=== PATIENT | male | born 1980 | race African-American/Black ===

== ENCOUNTER 2019-11-25 03:31 | Emergency (ER) | payer OTHER ==
[~2019-11-25] VITALS: Ht 170.2 cm; Wt 97.0 kg
[~2019-11-25 03:31] MED LIST: AMPICILLIN; GABAPENTIN; HYDR-4009; SERTRALINE; TEMAZEPAM; TIZA4CAP6
[2019-11-25] MEDS ORDERED: KETOROLAC 60MG/2ML VIAL IM ONE (04:30)
[2019-11-25 04:50] VITALS: BP 160/103
== END 2019-11-25 06:22 | disposition home or self-care (01) ==
LOC: ER 03:31
DX: S33.5XXA Sprain of ligaments of lumbar spine, initial encounter (principal); Z79.899 Other long term (current) drug therapy; V49.88XA Car occupant (driver) (passenger) injured in other specified transport accidents, initial encounter; Y93.89 Activity, other specified; Y92.89 Other specified places as the place of occurrence of the external cause; Y99.8 Other external cause status
CPT/HCPCS: 72100; 96372; 99283; J1885

== ENCOUNTER 2021-01-13 19:17 | Inpatient (IN) | payer MEDICAID, OTHER ==
[~2021-01-13] VITALS: Ht 167.6 cm; Wt 95.3 kg
[2021-01-13] MEDS ORDERED: MORPHINE SULFATE 4 MG/ML CPJ (NOT FOR IM USE) IV STA (19:56)
[2021-01-13] MEDS ORDERED: SODIUM CHLORIDE 0.9% 1,000 ML IV ONE (20:00)
[2021-01-13] MEDS ORDERED: DEXAMETHASONE 4MG/ML 1ML VIAL IV ONE (20:15)
[2021-01-13] MEDS ORDERED: ONDANSETRON HCL 4MG/2ML INJ IV ONE (20:45)
[2021-01-13 21:35] LABS: BASOPHILS % 0.3 % (0.0-2.0); HEMATOCRIT. 36.2 % (42.0-52.0); HEMOGLOBIN. 12.6 g/dL (14.0-18.0); MEAN CORPUSCULAR HEMOGLOBIN 28.8 pg (28.0-32.0); MEAN CORPUSCULAR VOLUME 82.8 fL (80.0-94.0); MEAN PLATELET VOLUME 8.9 fl (7.4-10.4); MONOCYTES % 5.8 % (2.0-8.0); NEUTROPHILS % 85.9 % (40.0-76.0); PLATELET 205 x1000/uL (130-400); RED BLOOD CELL COUNT 4.38 mill/uL (4.7-6.1)
[2021-01-13 21:41] LABS: CHLORIDE 106 mEq/L (98-107)
[2021-01-13] MEDS ORDERED: KCL 20MEQ/100ML PREMIX 100 ML IV ONE (23:30)
[2021-01-14] VITALS (7 sets, daily range): BP systolic 105–149; BP diastolic 57–87
[2021-01-14] MEDS ORDERED: NAPR-681 PO (05:06)
[2021-01-14] MEDS ORDERED: ASPI-1497 PO (05:07)
[2021-01-14] MEDS ORDERED: LOSA25TA3 PO (05:08)
[2021-01-14] MEDS ORDERED: GABA-529 PO (05:09)
[2021-01-14] MEDS: FAMOTIDINE 20MG TABLET PO SCH ×2 (08:16→21:00)
[2021-01-14] MEDS: ALBUTEROL 6.7GM HFA INHALER ORI SCH ×4 (08:16→20:41)
[2021-01-14] MEDS: ASPIRIN 81MG TABLET PO SCH (08:16)
[2021-01-14] MEDS: CEFTRIAXONE 1,000 MG in DEXTROSE 5% WATER 50 ML IV SCH (08:17)
[2021-01-14] MEDS: ENOXAPARIN 40MG/0.4ML SYR SUBCUT SCH (08:17)
[2021-01-14] MEDS: AZITHROMYCIN 500 MG in DEXT 5% WATER 250 ML IV SCH (08:17)
[2021-01-14] MEDS: DEXAMETHASONE 10 MG/ML VIAL IV SCH (08:17)
[2021-01-14] MEDS: GABAPENTIN 100MG CAPSULE PO SCH ×3 (08:22→21:00)
[2021-01-14] MEDS ORDERED: NALOXONE HCL 0.4MG/ML VIAL IV PRN ×2 (15:30)
[2021-01-15] VITALS: BP 149/87
[2021-01-15] MEDS: ALBUTEROL 6.7GM HFA INHALER ORI SCH ×6 (00:34→21:05)
[2021-01-15] MEDS: GUAIFENESIN-DM 200MG-20MG/10ML UDC PO PRN ×2 (03:54→21:14)
[2021-01-15 04:00] VITALS: BP 144/78
[2021-01-15] MEDS: ACETAMINOPHEN 325MG TABLET PO PRN ×2 (04:56→21:15)
[2021-01-15] MEDS: GABAPENTIN 100MG CAPSULE PO SCH ×3 (05:09→21:05)
[2021-01-15 08:00] VITALS: BP 124/59
[2021-01-15] MEDS: CEFTRIAXONE 1,000 MG in DEXTROSE 5% WATER 50 ML IV SCH (08:11)
[2021-01-15] MEDS: ASPIRIN 81MG TABLET PO SCH (08:11)
[2021-01-15] MEDS: FAMOTIDINE 20MG TABLET PO SCH ×2 (08:11→21:05)
[2021-01-15] MEDS: AZITHROMYCIN 500 MG in DEXT 5% WATER 250 ML IV SCH (08:11)
[2021-01-15] MEDS: ENOXAPARIN 40MG/0.4ML SYR SUBCUT SCH (08:11)
[2021-01-15] MEDS: DEXAMETHASONE 10 MG/ML VIAL IV SCH (08:12)
[2021-01-15 12:00] VITALS: BP 121/74
[2021-01-15 16:00] VITALS: BP 117/75
[2021-01-15 20:00] VITALS: BP 126/81
[2021-01-16] VITALS: BP 127/81
[2021-01-16 04:00] VITALS: BP 129/81
[2021-01-16] MEDS: ALBUTEROL 6.7GM HFA INHALER ORI SCH ×6 (04:14→20:49)
[2021-01-16] MEDS: GUAIFENESIN-DM 200MG-20MG/10ML UDC PO PRN ×3 (04:24→23:27)
[2021-01-16] MEDS: ACETAMINOPHEN 325MG TABLET PO PRN ×2 (04:24→15:01)
[2021-01-16] MEDS: GABAPENTIN 100MG CAPSULE PO SCH ×3 (05:26→20:48)
[2021-01-16 06:57] LABS: HEMATOCRIT. 36.6 % (42.0-52.0); HEMOGLOBIN. 12.4 g/dL (14.0-18.0); MEAN CORPUSCULAR HEMOGLOBIN 28.6 pg (28.0-32.0); MEAN CORPUSCULAR VOLUME 84.3 fL (80.0-94.0); MEAN PLATELET VOLUME 9.3 fl (7.4-10.4); PLATELET 278 x1000/uL (130-400); RED BLOOD CELL COUNT 4.34 mill/uL (4.7-6.1); RED CELL DISTRIBUTION WIDTH 13.8 % (11.6-14.6)
[2021-01-16 07:13] LABS: CHLORIDE 107 mEq/L (98-107)
[2021-01-16] MEDS: ASPIRIN 81MG TABLET PO SCH (08:48)
[2021-01-16] MEDS: ENOXAPARIN 40MG/0.4ML SYR SUBCUT SCH (08:48)
[2021-01-16] MEDS: FAMOTIDINE 20MG TABLET PO SCH ×2 (08:48→21:00)
[2021-01-16] MEDS: DEXAMETHASONE 10 MG/ML VIAL IV SCH (09:35)
[2021-01-16] MEDS: CEFTRIAXONE 1,000 MG in DEXTROSE 5% WATER 50 ML IV SCH (09:36)
[2021-01-16] MEDS: AZITHROMYCIN 500 MG in DEXT 5% WATER 250 ML IV SCH (09:36)
[2021-01-16 12:00] VITALS: BP 124/74
[2021-01-16 16:00] VITALS: BP 130/75
[2021-01-16 20:00] VITALS: BP 119/74
[2021-01-16] MEDS: HYDROCODONE/ACETAMINOPHEN 5/325MG TABLET PO PRN (20:48)
[2021-01-17] VITALS: BP 117/77
[2021-01-17] MEDS: ALBUTEROL 6.7GM HFA INHALER ORI SCH ×6 (00:19→20:16)
[2021-01-17 04:00] VITALS: BP 110/84
[2021-01-17] MEDS: GUAIFENESIN-DM 200MG-20MG/10ML UDC PO PRN ×2 (04:08→09:12)
[2021-01-17] MEDS: GABAPENTIN 100MG CAPSULE PO SCH ×3 (05:02→22:48)
[2021-01-17] MEDS: HYDROCODONE/ACETAMINOPHEN 5/325MG TABLET PO PRN ×3 (05:03→20:18)
[2021-01-17 08:00] VITALS: BP 125/83
[2021-01-17] MEDS: AZITHROMYCIN 500 MG in DEXT 5% WATER 250 ML IV SCH (08:58)
[2021-01-17] MEDS: ENOXAPARIN 40MG/0.4ML SYR SUBCUT SCH (08:58)
[2021-01-17] MEDS: FAMOTIDINE 20MG TABLET PO SCH ×2 (08:59→20:16)
[2021-01-17] MEDS: CEFTRIAXONE 1,000 MG in DEXTROSE 5% WATER 50 ML IV SCH (08:59)
[2021-01-17] MEDS: ASPIRIN 81MG TABLET PO SCH (08:59)
[2021-01-17] MEDS: ACETAMINOPHEN 325MG TABLET PO PRN ×2 (09:12→14:53)
[2021-01-17] MEDS: DEXAMETHASONE 10 MG/ML VIAL IV SCH (10:24)
[2021-01-17 11:17] LABS: PLATELET ESTIMATE NORMAL
[2021-01-17 12:00] VITALS: BP 126/82
[2021-01-17 16:00] VITALS: BP 124/68
[2021-01-17 20:00] VITALS: BP 129/107
[2021-01-18] VITALS: BP 142/84
[2021-01-18] MEDS: ALBUTEROL 6.7GM HFA INHALER ORI SCH ×7 (00:24→23:51)
[2021-01-18] MEDS: GUAIFENESIN-DM 200MG-20MG/10ML UDC PO PRN ×2 (00:24→18:52)
[2021-01-18] MEDS: HYDROCODONE/ACETAMINOPHEN 5/325MG TABLET PO PRN ×2 (03:44→08:19)
[2021-01-18] MEDS: ACETAMINOPHEN 325MG TABLET PO PRN ×3 (03:51→21:11)
[2021-01-18 04:00] VITALS: BP 151/91
[2021-01-18 06:19] LABS: BG BASE EXCESS 3.3 mmol/L (-2.0-2.0); BG CARBOXYHEMOGLOBIN 0.3 % (0.5-1.5); BG DEOXYHEMOGLOBIN 13.8 % (0.0-5.0); BG FRACTION INSPIRED OXYGEN 100; BG HCO3 ACT 26.9 mmol/L (22.0-26.0); BG OXYGEN SATURATION 86.2 % (92.0-98.5); BG OXYHEMOGLOBIN 85.9 % (94.0-97.0); BG PCO2 37.6 mmHg (35.0-45.0); BG PH 7.473 (7.350-7.450); BG PO2 49.9 mmHg (75.0-100.0); BG SAMPLE SITE RIGHT RADIAL; BG TOTAL HEMOGLOBIN 13.7 g/dL (12.0-18.0); BG VENT MODE MASK - NRB
[2021-01-18 08:00] VITALS: BP 117/75
[2021-01-18] MEDS: AZITHROMYCIN 500 MG in DEXT 5% WATER 250 ML IV SCH (08:21)
[2021-01-18] MEDS: FAMOTIDINE 20MG TABLET PO SCH (10:00)
[2021-01-18] MEDS: ENOXAPARIN 40MG/0.4ML SYR SUBCUT SCH (10:00)
[2021-01-18] MEDS: ASPIRIN 81MG TABLET PO SCH (10:00)
[2021-01-18] MEDS: CEFTRIAXONE 1,000 MG in DEXTROSE 5% WATER 50 ML IV SCH (10:02)
[2021-01-18] MEDS: DEXAMETHASONE 10 MG/ML VIAL IV SCH (10:02)
[2021-01-18 12:00] VITALS: BP 124/71
[2021-01-18] MEDS: PANTOPRAZOLE SODIUM 40 MG/VIAL IV SCH (13:30)
[2021-01-18] MEDS: GABAPENTIN 100MG CAPSULE PO SCH ×2 (13:52→21:11)
[2021-01-18 16:00] VITALS: BP 134/66
[2021-01-18 20:00] VITALS: BP 123/86
[2021-01-19] VITALS: BP 121/85
[2021-01-19 04:00] VITALS: BP 140/88
[2021-01-19] MEDS: ALBUTEROL 6.7GM HFA INHALER ORI SCH ×5 (04:13→21:03)
[2021-01-19] MEDS: GABAPENTIN 100MG CAPSULE PO SCH ×3 (05:33→21:03)
[2021-01-19 08:00] VITALS: BP 135/76
[2021-01-19] MEDS: PANTOPRAZOLE SODIUM 40 MG/VIAL IV SCH (09:07)
[2021-01-19] MEDS: DEXAMETHASONE 10 MG/ML VIAL IV SCH (09:07)
[2021-01-19] MEDS: ASPIRIN 81MG TABLET PO SCH (09:07)
[2021-01-19] MEDS: ENOXAPARIN 40MG/0.4ML SYR SUBCUT SCH (09:09)
[2021-01-19 12:00] VITALS: BP 136/67
[2021-01-19 16:00] VITALS: BP 120/57
[2021-01-19 20:00] VITALS: BP 135/77
[2021-01-19] MEDS: GUAIFENESIN-DM 200MG-20MG/10ML UDC PO PRN (21:08)
[2021-01-19] MEDS: KETOROLAC 30MG/ML VIAL IV PRN (21:09)
[2021-01-20] VITALS: BP 129/84
[2021-01-20] MEDS: ALBUTEROL 6.7GM HFA INHALER ORI SCH ×6 (00:33→20:10)
[2021-01-20 04:00] VITALS: BP 129/81
[2021-01-20] MEDS: GABAPENTIN 100MG CAPSULE PO SCH ×3 (06:25→20:15)
[2021-01-20 08:00] VITALS: BP 129/81
[2021-01-20] MEDS: ENOXAPARIN 40MG/0.4ML SYR SUBCUT SCH (08:30)
[2021-01-20] MEDS: PANTOPRAZOLE SODIUM 40 MG/VIAL IV SCH (08:30)
[2021-01-20] MEDS: DEXAMETHASONE 10 MG/ML VIAL IV SCH (08:30)
[2021-01-20] MEDS: ASPIRIN 81MG TABLET PO SCH (08:30)
[2021-01-20] MEDS: GUAIFENESIN-DM 200MG-20MG/10ML UDC PO PRN ×2 (09:01→20:14)
[2021-01-20] MEDS: ACETAMINOPHEN 325MG TABLET PO PRN ×2 (09:01→20:21)
[2021-01-20 12:00] VITALS: BP 116/63
[2021-01-20 16:00] VITALS: BP 112/66
[2021-01-20 20:00] VITALS: BP 122/56
[2021-01-21] VITALS: BP 120/73
[2021-01-21] MEDS: ALBUTEROL 6.7GM HFA INHALER ORI SCH ×6 (00:04→21:13)
[2021-01-21] MEDS: GUAIFENESIN-DM 200MG-20MG/10ML UDC PO PRN ×2 (03:56→15:30)
[2021-01-21] MEDS: ACETAMINOPHEN 325MG TABLET PO PRN ×2 (03:56→15:30)
[2021-01-21 04:00] VITALS: BP 130/84
[2021-01-21] MEDS: GABAPENTIN 100MG CAPSULE PO SCH ×3 (05:29→21:10)
[2021-01-21] MEDS ORDERED: PANTOPRAZOLE 40MG DR TABLET PO SCH (07:40)
[2021-01-21 08:05] VITALS: BP 131/75
[2021-01-21] MEDS: DEXAMETHASONE 10 MG/ML VIAL IV SCH (09:05)
[2021-01-21] MEDS: ASPIRIN 81MG TABLET PO SCH (09:06)
[2021-01-21] MEDS: ENOXAPARIN 40MG/0.4ML SYR SUBCUT SCH (09:06)
[2021-01-21 12:05] VITALS: BP 127/64
[2021-01-21] MEDS: FAMOTIDINE 20MG TABLET PO SCH ×2 (13:11→21:10)
[2021-01-21 16:00] VITALS: BP 135/75
[2021-01-21] MEDS: KETOROLAC 30MG/ML VIAL IV PRN (16:15)
[2021-01-21 20:00] VITALS: BP 98/62
[2021-01-22] VITALS (8 sets, daily range): BP systolic 111–139; BP diastolic 70–94
[2021-01-22] MEDS: GABAPENTIN 100MG CAPSULE PO SCH ×3 (05:30→21:21)
[2021-01-22] MEDS: ALBUTEROL 6.7GM HFA INHALER ORI SCH ×6 (05:30→22:31)
[2021-01-22] MEDS: GUAIFENESIN-DM 200MG-20MG/10ML UDC PO PRN ×2 (05:35→10:17)
[2021-01-22] MEDS: ACETAMINOPHEN 325MG TABLET PO PRN ×2 (05:40→21:54)
[2021-01-22 07:23] LABS: BASOPHILS % 0.2 % (0.0-2.0); EOSINOPHILS % 0.6 % (0.0-5.0); HEMATOCRIT. 36.5 % (42.0-52.0); HEMOGLOBIN. 12.1 g/dL (14.0-18.0); LYMPHOCYTES % 10.2 % (20.0-50.0); MEAN CORPUSCULAR HEMOGLOBIN 28.4 pg (28.0-32.0); MEAN CORPUSCULAR VOLUME 85.9 fL (80.0-94.0); MEAN PLATELET VOLUME 7.8 fl (7.4-10.4); MONOCYTES % 5.4 % (2.0-8.0); NEUTROPHILS % 83.6 % (40.0-76.0); PLATELET 321 x1000/uL (130-400); RED BLOOD CELL COUNT 4.25 mill/uL (4.7-6.1); RED CELL DISTRIBUTION WIDTH 13.7 % (11.6-14.6)
[2021-01-22 07:41] LABS: CHLORIDE 103 mEq/L (98-107)
[2021-01-22] MEDS: DEXAMETHASONE 10 MG/ML VIAL IV SCH (08:18)
[2021-01-22] MEDS: FAMOTIDINE 20MG TABLET PO SCH ×2 (08:18→21:21)
[2021-01-22] MEDS: ASPIRIN 81MG TABLET PO SCH (08:18)
[2021-01-22] MEDS: ENOXAPARIN 40MG/0.4ML SYR SUBCUT SCH (08:18)
[2021-01-22] MEDS: KETOROLAC 30MG/ML VIAL IV PRN ×3 (10:18→21:48)
[2021-01-23] VITALS (11 sets, daily range): BP systolic 119–142; BP diastolic 56–89
[2021-01-23] MEDS: ALBUTEROL 6.7GM HFA INHALER ORI SCH ×6 (01:13→22:01)
[2021-01-23] MEDS: GABAPENTIN 100MG CAPSULE PO SCH ×3 (06:13→22:00)
[2021-01-23] MEDS: GUAIFENESIN-DM 200MG-20MG/10ML UDC PO PRN (06:19)
[2021-01-23 07:03] LABS: BASOPHILS % 0.2 % (0.0-2.0); EOSINOPHILS % 0.4 % (0.0-5.0); HEMATOCRIT. 34.1 % (42.0-52.0); HEMOGLOBIN. 11.7 g/dL (14.0-18.0); LYMPHOCYTES % 10.7 % (20.0-50.0); MEAN CORPUSCULAR VOLUME 84.7 fL (80.0-94.0); MEAN PLATELET VOLUME 7.9 fl (7.4-10.4); NEUTROPHILS % 83.7 % (40.0-76.0); PLATELET 382 x1000/uL (130-400); RED BLOOD CELL COUNT 4.03 mill/uL (4.7-6.1); RED CELL DISTRIBUTION WIDTH 13.6 % (11.6-14.6)
[2021-01-23 07:06] LABS: CHLORIDE 102 mEq/L (98-107)
[2021-01-23] MEDS: ENOXAPARIN 40MG/0.4ML SYR SUBCUT SCH (08:20)
[2021-01-23] MEDS: DEXAMETHASONE 10 MG/ML VIAL IV SCH (08:21)
[2021-01-23] MEDS: ASPIRIN 81MG TABLET PO SCH (08:21)
[2021-01-23] MEDS: FAMOTIDINE 20MG TABLET PO SCH ×2 (08:22→22:00)
[2021-01-23] MEDS: ACETAMINOPHEN 325MG TABLET PO PRN (12:48)
[2021-01-23] MEDS: ENOXAPARIN 30MG/0.3ML SYR SUBCUT SCH ×2 (21:00→22:00)
[2021-01-24] VITALS (11 sets, daily range): BP systolic 102–139; BP diastolic 64–80
[2021-01-24] MEDS: ALBUTEROL 6.7GM HFA INHALER ORI SCH ×5 (01:23→21:11)
[2021-01-24] MEDS: GUAIFENESIN-DM 200MG-20MG/10ML UDC PO PRN (02:18)
[2021-01-24 03:15] LABS: CLARITY URINE CLEAR (CLEAR); COLOR URINE YELLOW (YELLOW); KETONES URINE NEGATIVE (NEGATIVE); LEUKOCYTE ESTERASE URINE NEGATIVE (NEGATIVE); NITRITE URINE NEGATIVE (NEGATIVE); OCCULT BLOOD URINE NEGATIVE (NEGATIVE); PROTEIN URINE NEGATIVE (NEGATIVE); SPECIFIC GRAVITY URINE 1.021 (1.005-1.030)
[2021-01-24] MEDS: GABAPENTIN 100MG CAPSULE PO SCH ×3 (06:36→21:10)
[2021-01-24] MEDS: ASPIRIN 81MG TABLET PO SCH (10:19)
[2021-01-24] MEDS: DEXAMETHASONE 10 MG/ML VIAL IV SCH (10:19)
[2021-01-24] MEDS: FAMOTIDINE 20MG TABLET PO SCH ×2 (10:19→21:10)
[2021-01-24] MEDS: ENOXAPARIN 30MG/0.3ML SYR SUBCUT SCH ×2 (10:20→21:00)
[2021-01-24] MEDS ORDERED: KETOROLAC 30MG/ML VIAL IM PRN (14:00)
[2021-01-24] MEDS: KETOROLAC 30MG/ML VIAL IM PRN (15:01)
[2021-01-25] VITALS (10 sets, daily range): BP systolic 110–148; BP diastolic 54–78
[2021-01-25] MEDS: ALBUTEROL 6.7GM HFA INHALER ORI SCH ×6 (00:11→20:00)
[2021-01-25] MEDS: GABAPENTIN 100MG CAPSULE PO SCH ×3 (06:45→21:24)
[2021-01-25] MEDS: ENOXAPARIN 30MG/0.3ML SYR SUBCUT SCH ×2 (08:53→21:25)
[2021-01-25] MEDS: FAMOTIDINE 20MG TABLET PO SCH ×2 (08:53→21:24)
[2021-01-25] MEDS: ASPIRIN 81MG TABLET PO SCH (08:53)
[2021-01-25 11:45] LABS: BASOPHILS % 0.4 % (0.0-2.0); EOSINOPHILS % 0.3 % (0.0-5.0); HEMATOCRIT. 35.2 % (42.0-52.0); HEMOGLOBIN. 11.9 g/dL (14.0-18.0); LYMPHOCYTES % 12.6 % (20.0-50.0); MEAN CORPUSCULAR HEMOGLOBIN 28.9 pg (28.0-32.0); MEAN CORPUSCULAR VOLUME 85.5 fL (80.0-94.0); MEAN PLATELET VOLUME 7.3 fl (7.4-10.4); MONOCYTES % 6.7 % (2.0-8.0); PLATELET 417 x1000/uL (130-400); RED BLOOD CELL COUNT 4.11 mill/uL (4.7-6.1); RED CELL DISTRIBUTION WIDTH 14.2 % (11.6-14.6)
[2021-01-25 13:47] LABS: CHLORIDE 105 mEq/L (98-107)
[2021-01-25 14:38] LABS: BG CARBOXYHEMOGLOBIN 0.3 % (0.5-1.5); BG FRACTION INSPIRED OXYGEN 30; BG HCO3 ACT 25.1 mmol/L (22.0-26.0); BG METHEMOGLOBIN 0.3 % (0.0-1.5); BG OXYHEMOGLOBIN 94.4 % (94.0-97.0); BG PH 7.437 (7.350-7.450); BG PO2 75.6 mmHg (75.0-100.0); BG SAMPLE SITE LEFT RADIAL; BG TOTAL HEMOGLOBIN 13.4 g/dL (12.0-18.0); BG VENT MODE HIGH FLOW
[2021-01-25] MEDS: GUAIFENESIN-DM 200MG-20MG/10ML UDC PO PRN (22:08)
[2021-01-25] MEDS: ACETAMINOPHEN 325MG TABLET PO PRN (22:08)
[2021-01-26] VITALS (11 sets, daily range): BP systolic 106–139; BP diastolic 49–84
[2021-01-26] MEDS: GABAPENTIN 100MG CAPSULE PO SCH ×3 (06:02→21:15)
[2021-01-26] MEDS: ALBUTEROL 6.7GM HFA INHALER ORI SCH ×4 (08:00→16:00)
[2021-01-26] MEDS: ENOXAPARIN 30MG/0.3ML SYR SUBCUT SCH ×2 (08:50→21:16)
[2021-01-26] MEDS: FAMOTIDINE 20MG TABLET PO SCH ×2 (08:50→21:15)
[2021-01-26] MEDS: ASPIRIN 81MG TABLET PO SCH (08:50)
[2021-01-26] MEDS: KETOROLAC 30MG/ML VIAL IM PRN (09:58)
[2021-01-26] MEDS ORDERED: IPRATROPIUM/ALBUTEROL 0.5-3(2.5)MG/3ML NEB HHN PRN (17:30)
[2021-01-26] MEDS: IPRATROPIUM/ALBUTEROL 0.5-3(2.5)MG/3ML NEB HHN SCH (20:54)
[2021-01-27] VITALS (11 sets, daily range): BP systolic 114–149; BP diastolic 69–109
[2021-01-27] MEDS: IPRATROPIUM/ALBUTEROL 0.5-3(2.5)MG/3ML NEB HHN SCH ×3 (00:58→22:02)
[2021-01-27] MEDS: GABAPENTIN 100MG CAPSULE PO SCH ×3 (06:09→21:54)
[2021-01-27] MEDS ORDERED: LORAZEPAM 0.5MG TABLET PO PRN (09:30)
[2021-01-27] MEDS: ASPIRIN 81MG TABLET PO SCH (09:44)
[2021-01-27] MEDS: ENOXAPARIN 30MG/0.3ML SYR SUBCUT SCH ×2 (09:44→20:38)
[2021-01-27] MEDS: FAMOTIDINE 20MG TABLET PO SCH ×2 (09:44→20:38)
[2021-01-27] MEDS: ONDANSETRON 4MG ODT PO PRN (20:38)
[2021-01-28] VITALS (13 sets, daily range): BP systolic 115–134; BP diastolic 46–82
[2021-01-28] MEDS: IPRATROPIUM/ALBUTEROL 0.5-3(2.5)MG/3ML NEB HHN SCH ×4 (01:36→20:59)
[2021-01-28] MEDS: GABAPENTIN 100MG CAPSULE PO SCH ×3 (05:14→21:41)
[2021-01-28] MEDS: FAMOTIDINE 20MG TABLET PO SCH ×2 (09:48→21:41)
[2021-01-28] MEDS: ASPIRIN 81MG TABLET PO SCH (09:48)
[2021-01-28] MEDS: ENOXAPARIN 30MG/0.3ML SYR SUBCUT SCH ×2 (09:49→21:41)
[2021-01-28 16:34] LABS: BASOPHILS % 0.7 % (0.0-2.0); EOSINOPHILS % 1.9 % (0.0-5.0); HEMATOCRIT. 34.8 % (42.0-52.0); HEMOGLOBIN. 11.8 g/dL (14.0-18.0); LYMPHOCYTES % 23.7 % (20.0-50.0); MEAN CORPUSCULAR HEMOGLOBIN 29.1 pg (28.0-32.0); MEAN PLATELET VOLUME 7.6 fl (7.4-10.4); MONOCYTES % 8.6 % (2.0-8.0); NEUTROPHILS % 65.1 % (40.0-76.0); PLATELET 466 x1000/uL (130-400); RED BLOOD CELL COUNT 4.04 mill/uL (4.7-6.1); RED CELL DISTRIBUTION WIDTH 13.8 % (11.6-14.6)
[2021-01-28 16:40] LABS: CHLORIDE 103 mEq/L (98-107)
[2021-01-28] MEDS: BENZONATATE 100MG CAPSULE PO PRN (21:39)
[2021-01-28] MEDS: GUAIFENESIN-DM 200MG-20MG/10ML UDC PO PRN (21:58)
[2021-01-29] VITALS (11 sets, daily range): BP systolic 111–148; BP diastolic 58–86
[2021-01-29] MEDS: IPRATROPIUM/ALBUTEROL 0.5-3(2.5)MG/3ML NEB HHN SCH ×4 (02:33→20:20)
[2021-01-29] MEDS: GABAPENTIN 100MG CAPSULE PO SCH ×3 (06:28→21:53)
[2021-01-29] MEDS: BENZONATATE 100MG CAPSULE PO PRN ×2 (06:28→14:34)
[2021-01-29] MEDS: FAMOTIDINE 20MG TABLET PO SCH ×2 (08:17→21:53)
[2021-01-29] MEDS: ASPIRIN 81MG TABLET PO SCH (08:17)
[2021-01-29] MEDS: ENOXAPARIN 30MG/0.3ML SYR SUBCUT SCH ×2 (08:18→21:54)
[2021-01-29] MEDS ORDERED: ALBUTEROL (0.083%) 2.5MG/3ML NEB HHN PRN (11:30)
[2021-01-29] MEDS: GUAIFENESIN-DM 200MG-20MG/10ML UDC PO PRN ×2 (11:50→18:44)
[2021-01-29] MEDS ORDERED: CARV3.1242 PO (16:36)
[2021-01-29] MEDS ORDERED: ATOR-2 PO (16:37)
[2021-01-29] MEDS ORDERED: flexeril PO (16:39)
[2021-01-29] MEDS ORDERED: FAMO40TA7 MT (16:39)
[2021-01-29] MEDS ORDERED: OXYC-105 PO (16:39)
[2021-01-29] MEDS: THROAT LOZENGES-BENZOCAINE/MENTH/CETYLPYRD CL LOZENGES MM PRN ×2 (17:47→21:54)
[2021-01-29] MEDS: ONDANSETRON 4MG ODT PO PRN (21:53)
[2021-01-30] VITALS (12 sets, daily range): BP systolic 107–154; BP diastolic 64–87
[2021-01-30] MEDS: IPRATROPIUM/ALBUTEROL 0.5-3(2.5)MG/3ML NEB HHN SCH ×4 (00:56→20:22)
[2021-01-30] MEDS: BENZONATATE 100MG CAPSULE PO PRN ×3 (02:09→22:23)
[2021-01-30] MEDS: THROAT LOZENGES-BENZOCAINE/MENTH/CETYLPYRD CL LOZENGES MM PRN ×3 (02:09→22:23)
[2021-01-30] MEDS: GABAPENTIN 100MG CAPSULE PO SCH ×3 (06:28→21:19)
[2021-01-30] MEDS: FAMOTIDINE 20MG TABLET PO SCH ×2 (09:57→21:20)
[2021-01-30] MEDS: ASPIRIN 81MG TABLET PO SCH (09:57)
[2021-01-30] MEDS: ENOXAPARIN 30MG/0.3ML SYR SUBCUT SCH ×2 (09:58→21:21)
[2021-01-30] MEDS ORDERED: KETOROLAC 60MG/2ML VIAL IM PRN (12:30)
[2021-01-30] MEDS: KETOROLAC 30MG/ML VIAL IM PRN (12:48)
[2021-01-30] MEDS: ONDANSETRON 4MG ODT PO PRN (17:28)
[2021-01-30] MEDS: ACETAMINOPHEN 325MG TABLET PO PRN (23:44)
[2021-01-31] VITALS (11 sets, daily range): BP systolic 100–154; BP diastolic 47–82
[2021-01-31] MEDS: IPRATROPIUM/ALBUTEROL 0.5-3(2.5)MG/3ML NEB HHN SCH ×4 (02:15→22:14)
[2021-01-31] MEDS: GUAIFENESIN-DM 200MG-20MG/10ML UDC PO PRN ×3 (02:52→14:58)
[2021-01-31] MEDS: THROAT LOZENGES-BENZOCAINE/MENTH/CETYLPYRD CL LOZENGES MM PRN ×3 (02:52→14:59)
[2021-01-31] MEDS: GABAPENTIN 100MG CAPSULE PO SCH ×3 (06:04→21:02)
[2021-01-31] MEDS: ENOXAPARIN 30MG/0.3ML SYR SUBCUT SCH ×2 (09:11→21:02)
[2021-01-31] MEDS: ASPIRIN 81MG TABLET PO SCH (09:11)
[2021-01-31] MEDS: FAMOTIDINE 20MG TABLET PO SCH ×2 (09:12→21:03)
[2021-01-31] MEDS: BENZONATATE 100MG CAPSULE PO PRN (10:27)
[2021-01-31] MEDS: ACETAMINOPHEN 325MG TABLET PO PRN (12:45)
[2021-01-31] MEDS ORDERED: CYCLOBENZAPRINE 10MG TABLET PO PRN (13:00)
[2021-01-31] MEDS: KETOROLAC 30MG/ML VIAL IM PRN (19:59)
[2021-01-31] MEDS: CARVEDILOL 3.125 MG TABLET PO SCH (21:03)
[2021-02-01] VITALS (12 sets, daily range): BP systolic 106–138; BP diastolic 66–88
[2021-02-01] MEDS: IPRATROPIUM/ALBUTEROL 0.5-3(2.5)MG/3ML NEB HHN SCH ×3 (07:49→20:30)
[2021-02-01] MEDS: ASPIRIN 81MG TABLET PO SCH (08:47)
[2021-02-01] MEDS: BENZONATATE 100MG CAPSULE PO PRN ×2 (08:47→22:07)
[2021-02-01] MEDS: GABAPENTIN 100MG CAPSULE PO SCH ×2 (08:47→17:31)
[2021-02-01] MEDS: FAMOTIDINE 20MG TABLET PO SCH ×2 (08:47→22:07)
[2021-02-01] MEDS: CARVEDILOL 3.125 MG TABLET PO SCH ×2 (08:48→22:06)
[2021-02-01] MEDS: ENOXAPARIN 30MG/0.3ML SYR SUBCUT SCH ×2 (08:49→22:08)
[2021-02-01] MEDS: GUAIFENESIN-DM 200MG-20MG/10ML UDC PO PRN ×2 (12:33→19:53)
[2021-02-01] MEDS: THROAT LOZENGES-BENZOCAINE/MENTH/CETYLPYRD CL LOZENGES MM PRN ×2 (14:29→19:53)
[2021-02-02] VITALS (10 sets, daily range): BP systolic 114–143; BP diastolic 45–83
[2021-02-02] MEDS: IPRATROPIUM/ALBUTEROL 0.5-3(2.5)MG/3ML NEB HHN SCH ×4 (02:29→21:40)
[2021-02-02] MEDS: GABAPENTIN 100MG CAPSULE PO SCH ×2 (08:44→17:33)
[2021-02-02] MEDS: CARVEDILOL 3.125 MG TABLET PO SCH ×2 (08:44→20:16)
[2021-02-02] MEDS: FAMOTIDINE 20MG TABLET PO SCH ×2 (08:44→20:16)
[2021-02-02] MEDS: ASPIRIN 81MG TABLET PO SCH (08:44)
[2021-02-02] MEDS: ENOXAPARIN 30MG/0.3ML SYR SUBCUT SCH ×2 (08:45→20:16)
[2021-02-02] MEDS: BENZONATATE 100MG CAPSULE PO PRN ×2 (08:51→20:16)
[2021-02-02] MEDS: THROAT LOZENGES-BENZOCAINE/MENTH/CETYLPYRD CL LOZENGES MM PRN ×3 (08:52→20:16)
[2021-02-02] MEDS: GUAIFENESIN-DM 200MG-20MG/10ML UDC PO PRN ×2 (13:55→20:16)
== END 2021-02-02 23:17 | DRG 720 ==
LOC: ER 19:55 → MICUSO 23:20 → EDBEDREQTM 23:27 → EDBEDREQSVC 23:27 → EDBEDREQ 23:27 → 7WST 01-14 03:58 → 3WST 01-22 16:31
PROVIDERS: ADMIT Internal Medicine; ATTEND Internal Medicine
DX: A41.89 Other specified sepsis (principal); J96.01 Acute respiratory failure with hypoxia; J12.82 Pneumonia due to coronavirus disease 2019; U07.1 COVID-19; E44.0 Moderate protein-calorie malnutrition; I10 Essential (primary) hypertension; E87.6 Hypokalemia; D64.9 Anemia, unspecified; G62.9 Polyneuropathy, unspecified; R74.01 Elevation of levels of liver transaminase levels; G89.4 Chronic pain syndrome; M54.5 Low back pain; R53.81 Other malaise; R26.9 Unspecified abnormalities of gait and mobility; E66.9 Obesity, unspecified; Z78.9 Other specified health status; Z79.899 Other long term (current) drug therapy; Z68.33 Body mass index [BMI] 33.0-33.9, adult; Z79.01 Long term (current) use of anticoagulants
CPT/HCPCS: 36415; 36600; 71045; 80048; 80053; 81003; 82375; 82728; 82805; 83615; 84145; 84484; 85025; 85379; 86140; 87426; 92523; 92610; 93005; 93306; 94640; 97110; 97116; 97162; 97166; 97530; 97535; 99285; C9113; J0456; J0696; J1100; J1650; J1885; J2270; J2405; J3480; J7030; J7060; Q0162

== ENCOUNTER 2021-02-02 23:07 | Inpatient (IN) | payer MEDICAID ==
[~2021-02-02] VITALS: Ht 167.6 cm; Wt 96.2 kg
[2021-02-02 23:07] VITALS: BP 123/67
[~2021-02-02 23:07] MED LIST changes: -AMPICILLIN; +ASPI-1497 PO; +ATOR-2 PO; +CARV3.1242 PO; +FAMO40TA7 MT; +GABA-529 PO; -GABAPENTIN; +LOSA25TA3 PO; +NAPR-681 PO; +OXYC-105 PO; -SERTRALINE; -TEMAZEPAM; -TIZA4CAP6; +flexeril PO
[2021-02-03] MEDS ORDERED: LORAZEPAM 1MG TABLET PO PRN (01:45)
[2021-02-03] MEDS ORDERED: ALBUTEROL (0.083%) 2.5MG/3ML NEB HHN PRN (01:45)
[2021-02-03] MEDS ORDERED: ONDANSETRON 4MG ODT PO PRN (01:45)
[2021-02-03] MEDS: BENZONATATE 100MG CAPSULE PO PRN ×2 (03:18→17:56)
[2021-02-03] MEDS: KETOROLAC 60MG/2ML VIAL IM PRN (03:23)
[2021-02-03 07:33] LABS: BASOPHILS % 0.7 % (0.0-2.0); HEMATOCRIT. 32.8 % (42.0-52.0); HEMOGLOBIN. 10.9 g/dL (14.0-18.0); LYMPHOCYTES % 31.1 % (20.0-50.0); MEAN CORPUSCULAR HEMOGLOBIN 28.8 pg (28.0-32.0); MEAN CORPUSCULAR VOLUME 86.2 fL (80.0-94.0); MEAN PLATELET VOLUME 7.3 fl (7.4-10.4); MONOCYTES % 6.5 % (2.0-8.0); NEUTROPHILS % 57.7 % (40.0-76.0); PLATELET 403 x1000/uL (130-400); RED CELL DISTRIBUTION WIDTH 13.6 % (11.6-14.6)
[2021-02-03 07:36] LABS: CHLORIDE 108 mEq/L (98-107)
[2021-02-03] MEDS: IPRATROPIUM/ALBUTEROL 0.5-3(2.5)MG/3ML NEB HHN SCH ×3 (07:55→20:02)
[2021-02-03 08:22] VITALS: BP 113/71
[2021-02-03] MEDS: GABAPENTIN 100MG CAPSULE PO SCH ×2 (08:24→17:53)
[2021-02-03] MEDS: ACETAMINOPHEN 325MG TABLET PO PRN ×2 (08:24→20:30)
[2021-02-03] MEDS: CARVEDILOL 3.125 MG TABLET PO SCH ×2 (08:25→20:18)
[2021-02-03] MEDS: FAMOTIDINE 20MG TABLET PO SCH ×2 (08:25→20:19)
[2021-02-03] MEDS: ASPIRIN 81MG TABLET PO SCH (08:25)
[2021-02-03] MEDS: ENOXAPARIN 30MG/0.3ML SYR SUBCUT SCH ×2 (08:26→20:19)
[2021-02-03] MEDS: GUAIFENESIN-DM 200MG-20MG/10ML UDC PO PRN ×3 (08:29→20:26)
[2021-02-03] MEDS: CYCLOBENZAPRINE 10MG TABLET PO PRN (14:10)
[2021-02-03] MEDS: THROAT LOZENGES-BENZOCAINE/MENTH/CETYLPYRD CL LOZENGES MM PRN ×2 (15:17→20:25)
[2021-02-03 20:00] VITALS: BP 128/80
[2021-02-04] MEDS: GUAIFENESIN-DM 200MG-20MG/10ML UDC PO PRN ×2 (06:48→18:34)
[2021-02-04] MEDS: THROAT LOZENGES-BENZOCAINE/MENTH/CETYLPYRD CL LOZENGES MM PRN ×2 (06:48→18:33)
[2021-02-04] MEDS: IPRATROPIUM/ALBUTEROL 0.5-3(2.5)MG/3ML NEB HHN SCH ×3 (07:37→21:19)
[2021-02-04 08:00] VITALS: BP 128/86
[2021-02-04] MEDS: CARVEDILOL 3.125 MG TABLET PO SCH ×2 (09:38→21:06)
[2021-02-04] MEDS: GABAPENTIN 100MG CAPSULE PO SCH ×2 (09:38→18:27)
[2021-02-04] MEDS: ASPIRIN 81MG TABLET PO SCH (09:38)
[2021-02-04] MEDS: FAMOTIDINE 20MG TABLET PO SCH ×2 (09:38→21:06)
[2021-02-04] MEDS: ENOXAPARIN 30MG/0.3ML SYR SUBCUT SCH ×2 (09:39→21:06)
[2021-02-04] MEDS: KETOROLAC 60MG/2ML VIAL IM PRN (09:45)
[2021-02-04 10:25] LABS: CHLORIDE 106 mEq/L (98-107)
[2021-02-04 10:29] LABS: TOTAL IRON BINDING CAPACITY 300 ug/dL (250-450)
[2021-02-04 10:38] LABS: BASOPHILS % 0.7 % (0.0-2.0); HEMATOCRIT. 35.1 % (42.0-52.0); HEMOGLOBIN. 11.9 g/dL (14.0-18.0); LYMPHOCYTES % 25.9 % (20.0-50.0); MEAN CORPUSCULAR VOLUME 85.8 fL (80.0-94.0); MEAN PLATELET VOLUME 7.6 fl (7.4-10.4); MONOCYTES % 5.8 % (2.0-8.0); NEUTROPHILS % 63.6 % (40.0-76.0); PLATELET 426 x1000/uL (130-400); RED BLOOD CELL COUNT 4.09 mill/uL (4.7-6.1); RED CELL DISTRIBUTION WIDTH 13.7 % (11.6-14.6)
[2021-02-04 11:24] LABS: FOLIC ACID (FOLATE) SERUM 17.6 ng/mL (>5.38)
[2021-02-04] MEDS: BISACODYL 5MG TABLET PO PRN (14:35)
[2021-02-04] MEDS: CYANOCOBALAMIN 1000MCG/ML VIAL IM SCH (18:27)
[2021-02-04] MEDS: BENZONATATE 100MG CAPSULE PO PRN (18:33)
[2021-02-04 20:00] VITALS: BP 153/92
[2021-02-05] MEDS: IPRATROPIUM/ALBUTEROL 0.5-3(2.5)MG/3ML NEB HHN SCH ×3 (07:48→20:21)
[2021-02-05 08:00] VITALS: BP 120/79
[2021-02-05] MEDS: CYANOCOBALAMIN 1000MCG/ML VIAL IM SCH (11:05)
[2021-02-05] MEDS: GABAPENTIN 100MG CAPSULE PO SCH ×2 (11:06→17:52)
[2021-02-05] MEDS: ENOXAPARIN 30MG/0.3ML SYR SUBCUT SCH ×2 (11:06→21:40)
[2021-02-05] MEDS: ASPIRIN 81MG TABLET PO SCH (11:07)
[2021-02-05] MEDS: FAMOTIDINE 20MG TABLET PO SCH ×2 (11:07→22:23)
[2021-02-05] MEDS: CARVEDILOL 3.125 MG TABLET PO SCH ×2 (11:07→21:40)
[2021-02-05] MEDS: ACETAMINOPHEN 325MG TABLET PO PRN (11:57)
[2021-02-05] MEDS: BENZONATATE 100MG CAPSULE PO PRN (11:57)
[2021-02-05] MEDS: KETOROLAC 30MG/ML VIAL IM PRN ×2 (16:02→21:38)
[2021-02-05] MEDS: TRAMADOL 50MG TABLET PO PRN ×2 (17:52→23:45)
[2021-02-05 20:00] VITALS: BP 132/81
[2021-02-06] MEDS: IPRATROPIUM/ALBUTEROL 0.5-3(2.5)MG/3ML NEB HHN SCH ×4 (02:11→20:51)
[2021-02-06 08:00] VITALS: BP 134/85
[2021-02-06] MEDS: CYANOCOBALAMIN 1000MCG/ML VIAL IM SCH (08:51)
[2021-02-06] MEDS: GABAPENTIN 100MG CAPSULE PO SCH ×2 (08:51→16:56)
[2021-02-06] MEDS: ASPIRIN 81MG TABLET PO SCH (08:51)
[2021-02-06] MEDS: FAMOTIDINE 20MG TABLET PO SCH ×2 (08:52→21:16)
[2021-02-06] MEDS: ENOXAPARIN 30MG/0.3ML SYR SUBCUT SCH ×2 (08:52→21:21)
[2021-02-06] MEDS: CARVEDILOL 3.125 MG TABLET PO SCH ×2 (08:52→21:16)
[2021-02-06] MEDS: TRAMADOL 50MG TABLET PO PRN (08:54)
[2021-02-06] MEDS: GUAIFENESIN-DM 200MG-20MG/10ML UDC PO PRN ×2 (11:25→21:23)
[2021-02-06] MEDS: ACETAMINOPHEN 325MG TABLET PO PRN (11:25)
[2021-02-06] MEDS: KETOROLAC 30MG/ML VIAL IM PRN (11:25)
[2021-02-06] MEDS: THROAT LOZENGES-BENZOCAINE/MENTH/CETYLPYRD CL LOZENGES MM PRN ×3 (11:26→21:21)
[2021-02-06] MEDS: BENZONATATE 100MG CAPSULE PO PRN (16:56)
[2021-02-06 20:00] VITALS: BP 151/80
[2021-02-07] MEDS: IPRATROPIUM/ALBUTEROL 0.5-3(2.5)MG/3ML NEB HHN SCH ×3 (01:12→20:16)
[2021-02-07] MEDS: ASPIRIN 81MG TABLET PO SCH (08:19)
[2021-02-07] MEDS: GABAPENTIN 100MG CAPSULE PO SCH ×2 (08:20→17:23)
[2021-02-07] MEDS: FAMOTIDINE 20MG TABLET PO SCH ×2 (08:20→21:44)
[2021-02-07] MEDS: CARVEDILOL 3.125 MG TABLET PO SCH ×2 (08:21→22:18)
[2021-02-07] MEDS: GUAIFENESIN-DM 200MG-20MG/10ML UDC PO PRN (08:28)
[2021-02-07] MEDS: BENZONATATE 100MG CAPSULE PO PRN ×2 (08:28→17:23)
[2021-02-07] MEDS: THROAT LOZENGES-BENZOCAINE/MENTH/CETYLPYRD CL LOZENGES MM PRN ×2 (08:28→17:24)
[2021-02-07] MEDS: ENOXAPARIN 40MG/0.4ML SYR SUBCUT SCH (08:28)
[2021-02-07] MEDS ORDERED: NALOXONE HCL 0.4MG/ML VIAL IV PRN (16:15)
[2021-02-07] MEDS: GUAIFENESIN 600MG ER TABLET PO SCH ×2 (17:24→21:44)
[2021-02-07] MEDS: OXYCODONE HCL/ACETAMINOPHEN 5/325MG TABLET PO PRN (18:27)
[2021-02-07 20:00] VITALS: BP 142/92
[2021-02-07] MEDS ORDERED: GUAIFENESIN 600MG ER TABLET PO SCH (21:00)
[2021-02-08] MEDS: IPRATROPIUM/ALBUTEROL 0.5-3(2.5)MG/3ML NEB HHN SCH ×3 (00:09→12:37)
[2021-02-08 06:39] LABS: CHLORIDE 108 mEq/L (98-107)
[2021-02-08 06:55] LABS: BASOPHILS % 0.8 % (0.0-2.0); EOSINOPHILS % 4.5 % (0.0-5.0); HEMATOCRIT. 35.5 % (42.0-52.0); HEMOGLOBIN. 11.9 g/dL (14.0-18.0); LYMPHOCYTES % 33.3 % (20.0-50.0); MEAN CORPUSCULAR HEMOGLOBIN 28.8 pg (28.0-32.0); MEAN CORPUSCULAR VOLUME 85.9 fL (80.0-94.0); MONOCYTES % 6.6 % (2.0-8.0); NEUTROPHILS % 54.8 % (40.0-76.0); PLATELET 430 x1000/uL (130-400); RED BLOOD CELL COUNT 4.13 mill/uL (4.7-6.1); RED CELL DISTRIBUTION WIDTH 14.1 % (11.6-14.6)
[2021-02-08 07:25] VITALS: BP 114/75
[2021-02-08] MEDS: FAMOTIDINE 20MG TABLET PO SCH ×2 (09:59→22:04)
[2021-02-08] MEDS: GABAPENTIN 100MG CAPSULE PO SCH ×2 (09:59→18:46)
[2021-02-08] MEDS: BISACODYL 5MG TABLET PO PRN (09:59)
[2021-02-08] MEDS: ASPIRIN 81MG TABLET PO SCH (10:01)
[2021-02-08] MEDS: GUAIFENESIN 600MG ER TABLET PO SCH ×2 (10:01→22:04)
[2021-02-08] MEDS: ENOXAPARIN 40MG/0.4ML SYR SUBCUT SCH (10:03)
[2021-02-08] MEDS: CARVEDILOL 3.125 MG TABLET PO SCH ×2 (10:03→22:05)
[2021-02-08] MEDS: THROAT LOZENGES-BENZOCAINE/MENTH/CETYLPYRD CL LOZENGES MM PRN ×2 (10:04→22:54)
[2021-02-08] MEDS: BENZONATATE 100MG CAPSULE PO PRN ×3 (10:12→22:05)
[2021-02-08 15:33] LABS: HEPATITIS B SURFACE ANTIGEN NEGATIVE
[2021-02-08 20:00] VITALS: BP 134/87
[2021-02-08] MEDS: OXYCODONE HCL/ACETAMINOPHEN 5/325MG TABLET PO PRN (22:54)
[2021-02-09] MEDS: IPRATROPIUM/ALBUTEROL 0.5-3(2.5)MG/3ML NEB HHN PRN ×2 (07:19→15:00)
[2021-02-09 08:00] VITALS: BP 132/82
[2021-02-09] MEDS: FAMOTIDINE 20MG TABLET PO SCH ×2 (08:17→21:24)
[2021-02-09] MEDS: GABAPENTIN 100MG CAPSULE PO SCH ×2 (08:17→16:45)
[2021-02-09] MEDS: GUAIFENESIN 600MG ER TABLET PO SCH ×2 (08:17→21:24)
[2021-02-09] MEDS: ENOXAPARIN 40MG/0.4ML SYR SUBCUT SCH (08:17)
[2021-02-09] MEDS: ASPIRIN 81MG TABLET PO SCH (08:18)
[2021-02-09] MEDS: CARVEDILOL 3.125 MG TABLET PO SCH ×2 (08:18→21:24)
[2021-02-09] MEDS: BENZONATATE 100MG CAPSULE PO PRN ×2 (08:58→17:02)
[2021-02-09] MEDS: THROAT LOZENGES-BENZOCAINE/MENTH/CETYLPYRD CL LOZENGES MM PRN ×3 (09:00→21:24)
[2021-02-09 19:06] LABS: 25-HYDROXY VITAMIN D3 19 ng/mL (.)
[2021-02-09 20:00] VITALS: BP 131/88
[2021-02-09] MEDS: OXYCODONE HCL/ACETAMINOPHEN 5/325MG TABLET PO PRN (21:24)
[2021-02-10] MEDS: BENZONATATE 100MG CAPSULE PO PRN ×3 (01:09→17:51)
[2021-02-10 08:41] VITALS: BP 112/73
[2021-02-10] MEDS: ASPIRIN 81MG TABLET PO SCH (08:58)
[2021-02-10] MEDS: GABAPENTIN 100MG CAPSULE PO SCH ×2 (08:59→17:51)
[2021-02-10] MEDS: ENOXAPARIN 40MG/0.4ML SYR SUBCUT SCH (08:59)
[2021-02-10] MEDS: GUAIFENESIN 600MG ER TABLET PO SCH ×2 (09:00→21:54)
[2021-02-10] MEDS: FAMOTIDINE 20MG TABLET PO SCH ×2 (09:00→21:54)
[2021-02-10] MEDS: OXYCODONE HCL/ACETAMINOPHEN 5/325MG TABLET PO PRN ×2 (09:00→17:52)
[2021-02-10] MEDS: CARVEDILOL 3.125 MG TABLET PO SCH ×2 (09:01→21:55)
[2021-02-10] MEDS: THROAT LOZENGES-BENZOCAINE/MENTH/CETYLPYRD CL LOZENGES MM PRN (17:53)
[2021-02-10 20:00] VITALS: BP 133/90
[2021-02-11] MEDS: IPRATROPIUM/ALBUTEROL 0.5-3(2.5)MG/3ML NEB HHN PRN (00:53)
[2021-02-11 06:48] LABS: CHLORIDE 105 mEq/L (98-107)
[2021-02-11 06:49] LABS: BASOPHILS % 0.5 % (0.0-2.0); EOSINOPHILS % 2.9 % (0.0-5.0); HEMATOCRIT. 35.6 % (42.0-52.0); HEMOGLOBIN. 11.7 g/dL (14.0-18.0); LYMPHOCYTES % 35.2 % (20.0-50.0); MEAN CORPUSCULAR HEMOGLOBIN 28.5 pg (28.0-32.0); MEAN CORPUSCULAR VOLUME 86.5 fL (80.0-94.0); MEAN PLATELET VOLUME 7.3 fl (7.4-10.4); MONOCYTES % 8.7 % (2.0-8.0); NEUTROPHILS % 52.7 % (40.0-76.0); PLATELET 378 x1000/uL (130-400); RED BLOOD CELL COUNT 4.11 mill/uL (4.7-6.1); RED CELL DISTRIBUTION WIDTH 13.9 % (11.6-14.6)
[2021-02-11 08:23] VITALS: BP 93/58
[2021-02-11] MEDS: CARVEDILOL 3.125 MG TABLET PO SCH ×2 (09:00→20:47)
[2021-02-11] MEDS: OXYCODONE HCL/ACETAMINOPHEN 5/325MG TABLET PO PRN ×2 (09:20→16:53)
[2021-02-11] MEDS: ASPIRIN 81MG TABLET PO SCH (09:20)
[2021-02-11] MEDS: GABAPENTIN 100MG CAPSULE PO SCH ×2 (09:21→16:51)
[2021-02-11] MEDS: ERGOCALCIFEROL 50000UNITS CAPSULE PO SCH (09:22)
[2021-02-11] MEDS: ENOXAPARIN 40MG/0.4ML SYR SUBCUT SCH (09:22)
[2021-02-11] MEDS: FAMOTIDINE 20MG TABLET PO SCH ×2 (09:22→20:46)
[2021-02-11] MEDS: GUAIFENESIN 600MG ER TABLET PO SCH ×2 (09:26→20:46)
[2021-02-11] MEDS: BENZONATATE 100MG CAPSULE PO PRN ×2 (11:59→20:52)
[2021-02-11] MEDS: THROAT LOZENGES-BENZOCAINE/MENTH/CETYLPYRD CL LOZENGES MM PRN ×2 (12:00→17:12)
[2021-02-11 20:00] VITALS: BP 131/84
[2021-02-11] MEDS: IPRATROPIUM/ALBUTEROL 0.5-3(2.5)MG/3ML NEB HHN SCH (23:59)
[2021-02-12 08:22] VITALS: BP 112/61
[2021-02-12] MEDS: IPRATROPIUM/ALBUTEROL 0.5-3(2.5)MG/3ML NEB HHN SCH ×2 (09:25→14:20)
[2021-02-12] MEDS: ASPIRIN 81MG TABLET PO SCH (09:39)
[2021-02-12] MEDS: FAMOTIDINE 20MG TABLET PO SCH ×2 (09:40→20:20)
[2021-02-12] MEDS: GUAIFENESIN 600MG ER TABLET PO SCH ×2 (09:40→20:20)
[2021-02-12] MEDS: GABAPENTIN 100MG CAPSULE PO SCH ×2 (09:40→17:27)
[2021-02-12] MEDS: CYCLOBENZAPRINE 10MG TABLET PO PRN ×2 (09:41→18:23)
[2021-02-12] MEDS: ENOXAPARIN 40MG/0.4ML SYR SUBCUT SCH (09:41)
[2021-02-12] MEDS: THROAT LOZENGES-BENZOCAINE/MENTH/CETYLPYRD CL LOZENGES MM PRN ×3 (09:41→18:22)
[2021-02-12] MEDS: OXYCODONE HCL/ACETAMINOPHEN 5/325MG TABLET PO PRN ×2 (09:43→20:22)
[2021-02-12] MEDS: BENZONATATE 100MG CAPSULE PO PRN ×2 (09:43→18:23)
[2021-02-12] MEDS: CARVEDILOL 3.125 MG TABLET PO SCH ×2 (13:49→20:21)
[2021-02-12 20:00] VITALS: BP 140/69
[2021-02-12] MEDS: ACETAMINOPHEN 325MG TABLET PO PRN (22:03)
[2021-02-13] MEDS: IPRATROPIUM/ALBUTEROL 0.5-3(2.5)MG/3ML NEB HHN SCH ×4 (00:16→23:17)
[2021-02-13] MEDS: THROAT LOZENGES-BENZOCAINE/MENTH/CETYLPYRD CL LOZENGES MM PRN ×2 (06:20→19:58)
[2021-02-13] MEDS: BENZONATATE 100MG CAPSULE PO PRN ×2 (06:20→16:38)
[2021-02-13] MEDS: OXYCODONE HCL/ACETAMINOPHEN 5/325MG TABLET PO PRN ×2 (07:57→20:14)
[2021-02-13 08:00] VITALS: BP 139/86
[2021-02-13] MEDS: FAMOTIDINE 20MG TABLET PO SCH ×2 (08:41→20:13)
[2021-02-13] MEDS: ENOXAPARIN 40MG/0.4ML SYR SUBCUT SCH (08:41)
[2021-02-13] MEDS: ASPIRIN 81MG TABLET PO SCH (08:41)
[2021-02-13] MEDS: GABAPENTIN 100MG CAPSULE PO SCH ×2 (08:41→16:32)
[2021-02-13] MEDS: CARVEDILOL 3.125 MG TABLET PO SCH ×2 (08:41→21:27)
[2021-02-13] MEDS: GUAIFENESIN 600MG ER TABLET PO SCH ×2 (10:56→20:14)
[2021-02-13] MEDS: LORAZEPAM 0.5MG TABLET PO PRN (11:44)
[2021-02-13] MEDS: SODIUM CHLORIDE 45ML SPRAY NS PRN (19:57)
[2021-02-13 20:00] VITALS: BP 130/84
[2021-02-13] MEDS: KETOROLAC 30MG/ML VIAL IM PRN (22:32)
[2021-02-14] MEDS: IPRATROPIUM/ALBUTEROL 0.5-3(2.5)MG/3ML NEB HHN SCH ×2 (07:18→15:46)
[2021-02-14 08:00] VITALS: BP 118/81
[2021-02-14 09:38] LABS: BASOPHILS % 0.7 % (0.0-2.0); EOSINOPHILS % 3.2 % (0.0-5.0); HEMOGLOBIN. 12.5 g/dL (14.0-18.0); MEAN CORPUSCULAR HEMOGLOBIN 29.1 pg (28.0-32.0); MEAN CORPUSCULAR VOLUME 85.8 fL (80.0-94.0); MEAN PLATELET VOLUME 6.9 fl (7.4-10.4); MONOCYTES % 5.9 % (2.0-8.0); NEUTROPHILS % 62.2 % (40.0-76.0); PLATELET 417 x1000/uL (130-400); RED BLOOD CELL COUNT 4.31 mill/uL (4.7-6.1); RED CELL DISTRIBUTION WIDTH 13.9 % (11.6-14.6)
[2021-02-14] MEDS: GUAIFENESIN 600MG ER TABLET PO SCH ×2 (09:40→21:11)
[2021-02-14] MEDS: GABAPENTIN 100MG CAPSULE PO SCH ×2 (09:40→16:57)
[2021-02-14] MEDS: ASPIRIN 81MG TABLET PO SCH (09:40)
[2021-02-14] MEDS: CARVEDILOL 3.125 MG TABLET PO SCH ×2 (09:41→21:10)
[2021-02-14] MEDS: OXYCODONE HCL/ACETAMINOPHEN 5/325MG TABLET PO PRN ×2 (09:42→18:20)
[2021-02-14] MEDS: FAMOTIDINE 20MG TABLET PO SCH ×2 (09:43→21:10)
[2021-02-14] MEDS: ENOXAPARIN 40MG/0.4ML SYR SUBCUT SCH (09:44)
[2021-02-14 09:50] LABS: CHLORIDE 106 mEq/L (98-107)
[2021-02-14] MEDS: THROAT LOZENGES-BENZOCAINE/MENTH/CETYLPYRD CL LOZENGES MM PRN ×2 (09:54→16:57)
[2021-02-14] MEDS: BENZONATATE 100MG CAPSULE PO PRN ×2 (09:54→18:19)
[2021-02-14] MEDS: SODIUM CHLORIDE 45ML SPRAY NS PRN (16:57)
[2021-02-14 20:00] VITALS: BP 140/91
[2021-02-15] MEDS: IPRATROPIUM/ALBUTEROL 0.5-3(2.5)MG/3ML NEB HHN SCH ×3 (01:32→16:44)
[2021-02-15 08:00] VITALS: BP 115/61
[2021-02-15] MEDS: BENZONATATE 100MG CAPSULE PO PRN (09:04)
[2021-02-15] MEDS: CARVEDILOL 3.125 MG TABLET PO SCH ×2 (09:06→21:35)
[2021-02-15] MEDS: FAMOTIDINE 20MG TABLET PO SCH ×2 (09:06→21:34)
[2021-02-15] MEDS: GUAIFENESIN 600MG ER TABLET PO SCH ×2 (09:06→21:33)
[2021-02-15] MEDS: GABAPENTIN 100MG CAPSULE PO SCH ×2 (09:06→16:18)
[2021-02-15] MEDS: OXYCODONE HCL/ACETAMINOPHEN 5/325MG TABLET PO PRN ×2 (09:06→21:34)
[2021-02-15] MEDS: SODIUM CHLORIDE 45ML SPRAY NS PRN ×2 (09:07→16:23)
[2021-02-15] MEDS: THROAT LOZENGES-BENZOCAINE/MENTH/CETYLPYRD CL LOZENGES MM PRN ×2 (09:07→16:23)
[2021-02-15] MEDS: ENOXAPARIN 40MG/0.4ML SYR SUBCUT SCH (09:07)
[2021-02-15] MEDS: ASPIRIN 81MG TABLET PO SCH (09:46)
[2021-02-15] MEDS: LIDOCAINE 5% PATCH TOP SCH (11:21)
[2021-02-15] MEDS: ACETAMINOPHEN 325MG TABLET PO PRN (16:20)
[2021-02-15] MEDS: KETOROLAC 30MG/ML VIAL IM PRN (18:11)
[2021-02-15 20:00] VITALS: BP 137/95
[2021-02-16] MEDS: IPRATROPIUM/ALBUTEROL 0.5-3(2.5)MG/3ML NEB HHN SCH ×3 (01:28→14:59)
[2021-02-16 08:44] VITALS: BP 119/61
[2021-02-16] MEDS: GUAIFENESIN 600MG ER TABLET PO SCH ×2 (09:08→20:36)
[2021-02-16] MEDS: ASPIRIN 81MG TABLET PO SCH (09:08)
[2021-02-16] MEDS: FAMOTIDINE 20MG TABLET PO SCH ×2 (09:08→20:36)
[2021-02-16] MEDS: GABAPENTIN 100MG CAPSULE PO SCH ×2 (09:08→16:54)
[2021-02-16] MEDS: BENZONATATE 100MG CAPSULE PO PRN ×2 (09:08→16:54)
[2021-02-16] MEDS: OXYCODONE HCL/ACETAMINOPHEN 5/325MG TABLET PO PRN ×3 (09:09→23:00)
[2021-02-16] MEDS: LIDOCAINE 5% PATCH TOP SCH (09:10)
[2021-02-16] MEDS: THROAT LOZENGES-BENZOCAINE/MENTH/CETYLPYRD CL LOZENGES MM PRN ×3 (09:10→23:00)
[2021-02-16] MEDS: ENOXAPARIN 40MG/0.4ML SYR SUBCUT SCH (09:10)
[2021-02-16] MEDS: SODIUM CHLORIDE 45ML SPRAY NS PRN ×2 (09:11→16:54)
[2021-02-16] MEDS: CARVEDILOL 3.125 MG TABLET PO SCH ×2 (09:57→20:36)
[2021-02-16 20:00] VITALS: BP 144/78
[2021-02-17] MEDS: BENZONATATE 100MG CAPSULE PO PRN ×2 (01:09→17:53)
[2021-02-17 08:00] VITALS: BP 135/81
[2021-02-17] MEDS: ENOXAPARIN 40MG/0.4ML SYR SUBCUT SCH (09:17)
[2021-02-17] MEDS: GUAIFENESIN 600MG ER TABLET PO SCH ×2 (09:17→20:54)
[2021-02-17] MEDS: FAMOTIDINE 20MG TABLET PO SCH ×2 (09:18→20:54)
[2021-02-17] MEDS: GABAPENTIN 100MG CAPSULE PO SCH ×2 (09:18→17:54)
[2021-02-17] MEDS: ASPIRIN 81MG TABLET PO SCH (09:18)
[2021-02-17] MEDS: ACETAMINOPHEN 325MG TABLET PO PRN (09:18)
[2021-02-17] MEDS: CARVEDILOL 3.125 MG TABLET PO SCH ×2 (09:18→20:53)
[2021-02-17] MEDS: LIDOCAINE 5% PATCH TOP SCH (09:19)
[2021-02-17] MEDS: OXYCODONE HCL/ACETAMINOPHEN 5/325MG TABLET PO PRN ×2 (09:24→17:53)
[2021-02-17] MEDS: IPRATROPIUM/ALBUTEROL 0.5-3(2.5)MG/3ML NEB HHN SCH ×2 (10:43→15:58)
[2021-02-17] MEDS: THROAT LOZENGES-BENZOCAINE/MENTH/CETYLPYRD CL LOZENGES MM PRN (17:54)
[2021-02-17 20:00] VITALS: BP 143/92
[2021-02-17] MEDS: LORAZEPAM 0.5MG TABLET PO PRN (21:05)
[2021-02-17] MEDS: CYCLOBENZAPRINE 10MG TABLET PO PRN (21:05)
[2021-02-18] MEDS: IPRATROPIUM/ALBUTEROL 0.5-3(2.5)MG/3ML NEB HHN SCH ×4 (01:15→22:18)
[2021-02-18 07:40] LABS: BASOPHILS % 0.6 % (0.0-2.0); EOSINOPHILS % 2.3 % (0.0-5.0); HEMATOCRIT. 35.7 % (42.0-52.0); HEMOGLOBIN. 11.8 g/dL (14.0-18.0); LYMPHOCYTES % 25.3 % (20.0-50.0); MEAN CORPUSCULAR HEMOGLOBIN 28.4 pg (28.0-32.0); MEAN CORPUSCULAR VOLUME 86.2 fL (80.0-94.0); MEAN PLATELET VOLUME 7.4 fl (7.4-10.4); MONOCYTES % 7.1 % (2.0-8.0); NEUTROPHILS % 64.7 % (40.0-76.0); PLATELET 323 x1000/uL (130-400); RED BLOOD CELL COUNT 4.14 mill/uL (4.7-6.1); RED CELL DISTRIBUTION WIDTH 13.9 % (11.6-14.6)
[2021-02-18 07:51] LABS: CHLORIDE 105 mEq/L (98-107)
[2021-02-18 08:26] VITALS: BP 112/62
[2021-02-18] MEDS: ASPIRIN 81MG TABLET PO SCH (09:05)
[2021-02-18] MEDS: ENOXAPARIN 40MG/0.4ML SYR SUBCUT SCH (09:05)
[2021-02-18] MEDS: ERGOCALCIFEROL 50000UNITS CAPSULE PO SCH (09:07)
[2021-02-18] MEDS: GABAPENTIN 100MG CAPSULE PO SCH ×2 (09:07→16:12)
[2021-02-18] MEDS: GUAIFENESIN 600MG ER TABLET PO SCH ×2 (09:07→20:42)
[2021-02-18] MEDS: BENZONATATE 100MG CAPSULE PO PRN ×2 (09:07→20:51)
[2021-02-18] MEDS: CYCLOBENZAPRINE 10MG TABLET PO PRN (09:07)
[2021-02-18] MEDS: CARVEDILOL 3.125 MG TABLET PO SCH ×2 (09:07→20:43)
[2021-02-18] MEDS: FAMOTIDINE 20MG TABLET PO SCH ×2 (09:08→20:42)
[2021-02-18] MEDS: THROAT LOZENGES-BENZOCAINE/MENTH/CETYLPYRD CL LOZENGES MM PRN ×2 (09:08→20:50)
[2021-02-18] MEDS: SODIUM CHLORIDE 45ML SPRAY NS PRN (09:08)
[2021-02-18] MEDS: LIDOCAINE 5% PATCH TOP SCH (09:09)
[2021-02-18] MEDS ORDERED: FUROSEMIDE 20MG/2ML VIAL IVP SCH (11:00)
[2021-02-18] MEDS: OXYCODONE HCL/ACETAMINOPHEN 5/325MG TABLET PO PRN ×2 (12:24→20:43)
[2021-02-18] MEDS ORDERED: FUROSEMIDE 20MG TABLET PO NR (12:45)
[2021-02-18 20:00] VITALS: BP 137/80
[2021-02-19 08:00] VITALS: BP 124/74
[2021-02-19] MEDS: ASPIRIN 81MG TABLET PO SCH (08:45)
[2021-02-19] MEDS: FAMOTIDINE 20MG TABLET PO SCH ×2 (08:45→21:38)
[2021-02-19] MEDS: GUAIFENESIN 600MG ER TABLET PO SCH ×2 (08:45→21:38)
[2021-02-19] MEDS: LIDOCAINE 5% PATCH TOP SCH (08:45)
[2021-02-19] MEDS: GABAPENTIN 100MG CAPSULE PO SCH ×2 (08:45→17:46)
[2021-02-19] MEDS: CARVEDILOL 3.125 MG TABLET PO SCH ×2 (08:45→21:39)
[2021-02-19] MEDS: ENOXAPARIN 30MG/0.3ML SYR SUBCUT SCH ×2 (08:46→21:39)
[2021-02-19] MEDS: OXYCODONE HCL/ACETAMINOPHEN 5/325MG TABLET PO PRN ×2 (08:53→18:16)
[2021-02-19] MEDS ORDERED: FUROSEMIDE 40MG TABLET PO NR (10:45)
[2021-02-19] MEDS: IPRATROPIUM/ALBUTEROL 0.5-3(2.5)MG/3ML NEB HHN SCH (16:22)
[2021-02-19 20:00] VITALS: BP 152/90
[2021-02-20] MEDS: IPRATROPIUM/ALBUTEROL 0.5-3(2.5)MG/3ML NEB HHN SCH ×3 (00:34→15:41)
[2021-02-20 07:59] VITALS: BP 106/69
[2021-02-20] MEDS: ENOXAPARIN 30MG/0.3ML SYR SUBCUT SCH ×2 (08:12→20:20)
[2021-02-20] MEDS: GUAIFENESIN 600MG ER TABLET PO SCH ×2 (08:12→20:19)
[2021-02-20] MEDS: LIDOCAINE 5% PATCH TOP SCH (08:12)
[2021-02-20] MEDS: ASPIRIN 81MG TABLET PO SCH (08:12)
[2021-02-20] MEDS: GABAPENTIN 100MG CAPSULE PO SCH ×2 (08:13→16:34)
[2021-02-20] MEDS: OXYCODONE HCL/ACETAMINOPHEN 5/325MG TABLET PO PRN ×3 (08:13→20:20)
[2021-02-20] MEDS: FAMOTIDINE 20MG TABLET PO SCH ×2 (08:14→20:19)
[2021-02-20] MEDS: CARVEDILOL 3.125 MG TABLET PO SCH ×2 (08:24→20:19)
[2021-02-20] MEDS ORDERED: FUROSEMIDE 40MG TABLET PO SCH (11:30)
[2021-02-20 20:00] VITALS: BP 143/84
[2021-02-21] MEDS: IPRATROPIUM/ALBUTEROL 0.5-3(2.5)MG/3ML NEB HHN SCH ×4 (03:02→23:59)
[2021-02-21] MEDS: CYCLOBENZAPRINE 10MG TABLET PO PRN (03:23)
[2021-02-21 08:12] VITALS: BP 106/54
[2021-02-21] MEDS: CARVEDILOL 3.125 MG TABLET PO SCH ×2 (09:00→21:13)
[2021-02-21] MEDS: GUAIFENESIN 600MG ER TABLET PO SCH ×2 (10:13→21:12)
[2021-02-21] MEDS: OXYCODONE HCL/ACETAMINOPHEN 5/325MG TABLET PO PRN ×2 (10:13→17:51)
[2021-02-21] MEDS: ASPIRIN 81MG TABLET PO SCH (10:13)
[2021-02-21] MEDS: FAMOTIDINE 20MG TABLET PO SCH ×2 (10:13→21:12)
[2021-02-21] MEDS: GABAPENTIN 100MG CAPSULE PO SCH ×2 (10:14→17:44)
[2021-02-21] MEDS: ENOXAPARIN 30MG/0.3ML SYR SUBCUT SCH ×2 (10:14→21:15)
[2021-02-21] MEDS: LIDOCAINE 5% PATCH TOP SCH (10:15)
[2021-02-21 16:32] LABS: CHLORIDE 106 mEq/L (98-107)
[2021-02-21] MEDS: LORAZEPAM 0.5MG TABLET PO PRN (18:26)
[2021-02-21 20:00] VITALS: BP 137/77
[2021-02-21] MEDS: THROAT LOZENGES-BENZOCAINE/MENTH/CETYLPYRD CL LOZENGES MM PRN (21:11)
[2021-02-22] MEDS: IPRATROPIUM/ALBUTEROL 0.5-3(2.5)MG/3ML NEB HHN SCH ×3 (01:15→13:08)
[2021-02-22 08:00] VITALS: BP 133/84
[2021-02-22] MEDS: CARVEDILOL 3.125 MG TABLET PO SCH ×2 (09:37→21:21)
[2021-02-22] MEDS: FAMOTIDINE 20MG TABLET PO SCH ×2 (09:37→21:21)
[2021-02-22] MEDS: GUAIFENESIN 600MG ER TABLET PO SCH ×2 (09:37→21:21)
[2021-02-22] MEDS: GABAPENTIN 100MG CAPSULE PO SCH ×2 (09:37→17:10)
[2021-02-22] MEDS: ASPIRIN 81MG TABLET PO SCH (09:38)
[2021-02-22] MEDS: ENOXAPARIN 30MG/0.3ML SYR SUBCUT SCH ×2 (09:38→21:21)
[2021-02-22] MEDS: OXYCODONE HCL/ACETAMINOPHEN 5/325MG TABLET PO PRN ×2 (09:38→17:35)
[2021-02-22] MEDS: LIDOCAINE 5% PATCH TOP SCH (09:39)
[2021-02-22 20:00] VITALS: BP 130/84
[2021-02-22] MEDS: CYCLOBENZAPRINE 10MG TABLET PO PRN (21:24)
[2021-02-23] MEDS: IPRATROPIUM/ALBUTEROL 0.5-3(2.5)MG/3ML NEB HHN SCH ×3 (07:41→22:13)
[2021-02-23 07:51] VITALS: BP 110/65
[2021-02-23] MEDS: ASPIRIN 81MG TABLET PO SCH (08:05)
[2021-02-23] MEDS: CARVEDILOL 3.125 MG TABLET PO SCH ×2 (08:06→20:32)
[2021-02-23] MEDS: GABAPENTIN 100MG CAPSULE PO SCH ×2 (08:06→17:03)
[2021-02-23] MEDS: FAMOTIDINE 20MG TABLET PO SCH ×2 (08:06→20:30)
[2021-02-23] MEDS: GUAIFENESIN 600MG ER TABLET PO SCH ×2 (08:06→20:32)
[2021-02-23] MEDS: ENOXAPARIN 30MG/0.3ML SYR SUBCUT SCH ×2 (08:08→20:58)
[2021-02-23] MEDS: LIDOCAINE 5% PATCH TOP SCH (08:08)
[2021-02-23] MEDS: OXYCODONE HCL/ACETAMINOPHEN 5/325MG TABLET PO PRN ×3 (08:09→21:00)
[2021-02-23 20:00] VITALS: BP 134/87
[2021-02-23] MEDS: CYCLOBENZAPRINE 10MG TABLET PO PRN (20:59)
[2021-02-23] MEDS: THROAT LOZENGES-BENZOCAINE/MENTH/CETYLPYRD CL LOZENGES MM PRN (20:59)
[2021-02-24 06:45] LABS: BASOPHILS % 0.6 % (0.0-2.0); HEMATOCRIT. 33.5 % (42.0-52.0); HEMOGLOBIN. 11.5 g/dL (14.0-18.0); LYMPHOCYTES % 38.8 % (20.0-50.0); MEAN CORPUSCULAR HEMOGLOBIN 29.1 pg (28.0-32.0); MEAN CORPUSCULAR VOLUME 85.1 fL (80.0-94.0); MEAN PLATELET VOLUME 7.3 fl (7.4-10.4); MONOCYTES % 7.3 % (2.0-8.0); NEUTROPHILS % 49.3 % (40.0-76.0); PLATELET 269 x1000/uL (130-400); RED BLOOD CELL COUNT 3.94 mill/uL (4.7-6.1); RED CELL DISTRIBUTION WIDTH 13.9 % (11.6-14.6)
[2021-02-24 07:46] LABS: CHLORIDE 106 mEq/L (98-107)
[2021-02-24] MEDS: IPRATROPIUM/ALBUTEROL 0.5-3(2.5)MG/3ML NEB HHN SCH (07:54)
[2021-02-24 08:20] VITALS: BP 106/55
[2021-02-24] MEDS: CARVEDILOL 3.125 MG TABLET PO SCH ×2 (09:00→21:03)
[2021-02-24] MEDS: ENOXAPARIN 30MG/0.3ML SYR SUBCUT SCH ×2 (09:00→21:03)
[2021-02-24] MEDS: FAMOTIDINE 20MG TABLET PO SCH ×2 (10:21→21:03)
[2021-02-24] MEDS: ASPIRIN 81MG TABLET PO SCH (10:21)
[2021-02-24] MEDS: GABAPENTIN 100MG CAPSULE PO SCH ×2 (10:21→17:09)
[2021-02-24] MEDS: GUAIFENESIN 600MG ER TABLET PO SCH ×2 (10:22→21:03)
[2021-02-24] MEDS: LIDOCAINE 5% PATCH TOP SCH (10:23)
[2021-02-24] MEDS: OXYCODONE HCL/ACETAMINOPHEN 5/325MG TABLET PO PRN ×3 (10:39→23:21)
[2021-02-24 20:00] VITALS: BP 134/82
[2021-02-25] MEDS: IPRATROPIUM/ALBUTEROL 0.5-3(2.5)MG/3ML NEB HHN SCH ×5 (02:04→22:36)
[2021-02-25] MEDS: LORAZEPAM 0.5MG TABLET PO PRN ×2 (03:57→21:14)
[2021-02-25 08:20] VITALS: BP 96/49
[2021-02-25] MEDS: CARVEDILOL 3.125 MG TABLET PO SCH ×2 (09:00→20:54)
[2021-02-25] MEDS: ENOXAPARIN 30MG/0.3ML SYR SUBCUT SCH ×2 (09:00→20:54)
[2021-02-25] MEDS: ERGOCALCIFEROL 50000UNITS CAPSULE PO SCH (09:49)
[2021-02-25] MEDS: OXYCODONE HCL/ACETAMINOPHEN 5/325MG TABLET PO PRN ×2 (09:49→17:19)
[2021-02-25] MEDS: GABAPENTIN 100MG CAPSULE PO SCH ×2 (09:49→17:19)
[2021-02-25] MEDS: GUAIFENESIN 600MG ER TABLET PO SCH ×2 (09:49→20:54)
[2021-02-25] MEDS: FAMOTIDINE 20MG TABLET PO SCH ×2 (09:49→20:54)
[2021-02-25] MEDS: ASPIRIN 81MG TABLET PO SCH (09:50)
[2021-02-25] MEDS: LIDOCAINE 5% PATCH TOP SCH (09:50)
[2021-02-25] MEDS: THROAT LOZENGES-BENZOCAINE/MENTH/CETYLPYRD CL LOZENGES MM PRN (09:50)
[2021-02-25] MEDS: CYCLOBENZAPRINE 10MG TABLET PO PRN (17:19)
[2021-02-25] MEDS: SODIUM CHLORIDE 45ML SPRAY NS PRN (17:20)
[2021-02-25 20:00] VITALS: BP 133/88
[2021-02-26 07:56] VITALS: BP 97/38
[2021-02-26] MEDS: CARVEDILOL 3.125 MG TABLET PO SCH ×3 (09:00→21:47)
[2021-02-26] MEDS: ASPIRIN 81MG TABLET PO SCH (09:09)
[2021-02-26] MEDS: GABAPENTIN 100MG CAPSULE PO SCH ×2 (09:09→17:21)
[2021-02-26] MEDS: ENOXAPARIN 30MG/0.3ML SYR SUBCUT SCH ×2 (09:10→21:46)
[2021-02-26] MEDS: OXYCODONE HCL/ACETAMINOPHEN 5/325MG TABLET PO PRN ×3 (09:10→22:11)
[2021-02-26] MEDS: FAMOTIDINE 20MG TABLET PO SCH ×2 (09:10→21:45)
[2021-02-26] MEDS: LIDOCAINE 5% PATCH TOP SCH (09:11)
[2021-02-26] MEDS: GUAIFENESIN 600MG ER TABLET PO SCH ×2 (09:13→21:45)
[2021-02-26] MEDS ORDERED: COR3 PO (09:15)
[2021-02-26] MEDS ORDERED: GABA-529 PO (09:15)
[2021-02-26] MEDS ORDERED: BENZ100C86 PO (09:15)
[2021-02-26] MEDS ORDERED: ALBU18HF2 IH (09:16)
[2021-02-26] MEDS: CYCLOBENZAPRINE 10MG TABLET PO PRN ×2 (09:19→22:09)
[2021-02-26 10:05] VITALS: BP 111/59
[2021-02-26] MEDS: IPRATROPIUM/ALBUTEROL 0.5-3(2.5)MG/3ML NEB HHN SCH ×3 (13:25→22:51)
[2021-02-26] MEDS: THROAT LOZENGES-BENZOCAINE/MENTH/CETYLPYRD CL LOZENGES MM PRN (17:21)
[2021-02-26] MEDS: SODIUM CHLORIDE 45ML SPRAY NS PRN (17:22)
[2021-02-26 20:00] VITALS: BP 137/86
[2021-02-27 08:00] VITALS: BP 139/82
[2021-02-27] MEDS: CYCLOBENZAPRINE 10MG TABLET PO PRN (08:40)
[2021-02-27] MEDS: ASPIRIN 81MG TABLET PO SCH (08:40)
[2021-02-27] MEDS: GABAPENTIN 100MG CAPSULE PO SCH (08:40)
[2021-02-27] MEDS: CARVEDILOL 3.125 MG TABLET PO SCH (08:41)
[2021-02-27] MEDS: GUAIFENESIN 600MG ER TABLET PO SCH (08:42)
[2021-02-27] MEDS: OXYCODONE HCL/ACETAMINOPHEN 5/325MG TABLET PO PRN (08:46)
[2021-02-27] MEDS: LIDOCAINE 5% PATCH TOP SCH (08:47)
[2021-02-27] MEDS: ENOXAPARIN 30MG/0.3ML SYR SUBCUT SCH (08:48)
[2021-02-27] MEDS: SODIUM CHLORIDE 45ML SPRAY NS PRN (08:54)
[2021-02-27] MEDS: FAMOTIDINE 20MG TABLET PO SCH (08:54)
[2021-02-27] MEDS: THROAT LOZENGES-BENZOCAINE/MENTH/CETYLPYRD CL LOZENGES MM PRN (08:54)
[2021-02-27] MEDS: BENZONATATE 100MG CAPSULE PO PRN (08:55)
[2021-02-27] MEDS: IPRATROPIUM/ALBUTEROL 0.5-3(2.5)MG/3ML NEB HHN SCH (09:46)
[2021-02-27 15:46] VITALS: BP 125/78
== END 2021-02-27 17:45 | disposition home health service (06) | DRG 861 ==
PROVIDERS: ADMIT Physical Medicine & Rehabilitation Spinal Cord Injury Medicine; ATTEND Internal Medicine
DX: R53.81 Other malaise (principal); J96.01 Acute respiratory failure with hypoxia; A41.89 Other specified sepsis; E43 Unspecified severe protein-calorie malnutrition; E87.8 Other disorders of electrolyte and fluid balance, not elsewhere classified; D64.9 Anemia, unspecified; E53.8 Deficiency of other specified B group vitamins; G89.4 Chronic pain syndrome; I10 Essential (primary) hypertension; J98.01 Acute bronchospasm; E55.9 Vitamin D deficiency, unspecified; M54.5 Low back pain; R26.9 Unspecified abnormalities of gait and mobility; R74.01 Elevation of levels of liver transaminase levels; Z82.49 Family history of ischemic heart disease and other diseases of the circulatory system; Z87.01 Personal history of pneumonia (recurrent); Z86.16 Personal history of COVID-19; Z68.34 Body mass index [BMI] 34.0-34.9, adult
CPT/HCPCS: 36415; 71046; 76700; 80048; 80053; 82306; 82607; 82728; 82746; 83540; 83550; 84134; 84443; 85025; 86705; 86709; 86803; 87340; 92523; 92610; 93970; 94618; 94640; 97110; 97116; 97162; 97166; 97530; 97535; J1650; J1885; J3420

== ENCOUNTER 2021-09-01 20:48 | Emergency (ER) | payer MEDICAID ==
[~2021-09-01] VITALS: Ht 167.6 cm; Wt 100.0 kg
[~2021-09-01 20:48] MED LIST changes: +ALBU18HF2 IH; +BENZ100C86 PO; +COR3 PO; -HYDR-4009
[2021-09-01 22:59] LABS: EOSINOPHILS % 2.2 % (0.0-5.0); HEMATOCRIT. 39.8 % (42.0-52.0); HEMOGLOBIN. 13.8 g/dL (14.0-18.0); LYMPHOCYTES % 39.3 % (20.0-50.0); MEAN CORPUSCULAR HEMOGLOBIN 29.4 pg (28.0-32.0); MEAN CORPUSCULAR VOLUME 84.8 fL (80.0-94.0); MEAN PLATELET VOLUME 7.1 fl (7.4-10.4); MONOCYTES % 5.3 % (2.0-8.0); NEUTROPHILS % 52.2 % (40.0-76.0); PLATELET 339 x1000/uL (130-400)
[2021-09-01 23:04] LABS: CHLORIDE 110 mEq/L (98-107)
[2021-09-02 01:43] VITALS: BP 145/92
== END 2021-09-02 02:18 | disposition home or self-care (01) ==
LOC: ER 20:48
DX: R07.89 Other chest pain (principal); I10 Essential (primary) hypertension; E78.00 Pure hypercholesterolemia, unspecified; Z79.82 Long term (current) use of aspirin
CPT/HCPCS: 36415; 71045; 80053; 83880; 84484; 85025; 93005; 99285

== ENCOUNTER 2021-10-13 21:24 | Emergency (ER) | payer MEDICAID ==
[~2021-10-13] VITALS: Ht 167.6 cm; Wt 94.4 kg
[2021-10-14 00:32] LABS: BASOPHILS % 0.7 % (0.0-2.0); EOSINOPHILS % 1.1 % (0.0-5.0); HEMATOCRIT. 45.6 % (42.0-52.0); HEMOGLOBIN. 15.6 g/dL (14.0-18.0); LYMPHOCYTES % 30.9 % (20.0-50.0); MEAN CORPUSCULAR HEMOGLOBIN 29.3 pg (28.0-32.0); MEAN CORPUSCULAR VOLUME 85.4 fL (80.0-94.0); MEAN PLATELET VOLUME 7.4 fl (7.4-10.4); MONOCYTES % 9.6 % (2.0-8.0); NEUTROPHILS % 57.7 % (40.0-76.0); PLATELET 368 x1000/uL (130-400); RED BLOOD CELL COUNT 5.34 mill/uL (4.7-6.1); RED CELL DISTRIBUTION WIDTH 13.6 % (11.6-14.6)
[2021-10-14 00:36] LABS: CHLORIDE 107 mEq/L (98-107)
[2021-10-14] MEDS ORDERED: NAPR-1176 MT (04:35)
[2021-10-14 05:20] VITALS: BP 142/82
== END 2021-10-14 05:40 | disposition home or self-care (01) ==
LOC: ER 21:24
DX: M94.0 Chondrocostal junction syndrome [Tietze] (principal); I10 Essential (primary) hypertension; E78.00 Pure hypercholesterolemia, unspecified; Z79.82 Long term (current) use of aspirin
CPT/HCPCS: 36415; 71045; 80053; 83880; 84484; 85025; 93005; 99285

== ENCOUNTER 2022-05-30 12:10 | Emergency (ER) | payer MEDICAID ==
[~2022-05-30] VITALS: Ht 167.6 cm; Wt 93.0 kg
[~2022-05-30 12:10] MED LIST changes: +NAPR-1176 MT
[2022-05-30 12:15] VITALS: BP 147/103
[2022-05-30] MEDS ORDERED: CYCL5TAB MT (15:54)
[2022-05-30] MEDS ORDERED: CYCLOBENZAPRINE 10MG TABLET PO ONE (16:00)
[2022-05-30] MEDS ORDERED: KETOROLAC 60MG/2ML VIAL IM ONE (16:00)
== END 2022-05-30 16:05 | disposition home or self-care (01) ==
LOC: ER 12:10
DX: M54.2 Cervicalgia (principal); M25.512 Pain in left shoulder; E78.00 Pure hypercholesterolemia, unspecified; I10 Essential (primary) hypertension; Z79.899 Other long term (current) drug therapy
CPT/HCPCS: 96372; 99283; J1885

== ENCOUNTER 2023-07-01 13:56 | Emergency (ER) | payer MEDICAID ==
[~2023-07-01] VITALS: Ht 175.3 cm; Wt 91.0 kg
[~2023-07-01 13:56] MED LIST changes: +CYCL5TAB MT; +LOSA-412 PO; -LOSA25TA3 PO
[2023-07-01 14:03] VITALS: BP 149/96; PULSE 92; RESP 16; TEMP 98.5; O2SAT 97
[2023-07-01] MEDS ORDERED: DIPHENHYDRAMINE 50MG/ML VIAL IM ONE (16:00)
[2023-07-01] MEDS ORDERED: HYDR453.3 TP (16:48)
[2023-07-01] MEDS ORDERED: DIPH-1207 MT (16:48)
[2023-07-01] MEDS ORDERED: KETOROLAC 30MG/ML VIAL IM ONE (17:15)
== END 2023-07-01 17:02 | disposition home or self-care (01) ==
LOC: ER 13:56
DX: L24.9 Irritant contact dermatitis, unspecified cause (principal)
CPT/HCPCS: 99284; 96372; J1200; J1885

== ENCOUNTER 2023-07-15 18:27 | Emergency (ER) | payer MEDICAID ==
[~2023-07-15] VITALS: Ht 177.8 cm; Wt 113.0 kg
[~2023-07-15 18:27] MED LIST changes: +DIPH-1207 MT; +HYDR453.3 TP
[2023-07-15 18:30] VITALS: O2SAT 96
[2023-07-15] MEDS ORDERED: KETOROLAC 15MG/ML VIAL IM ONE (19:30)
[2023-07-15] MEDS ORDERED: LIDO700A15 TP (20:36)
[2023-07-15 20:42] VITALS: BP 154/112; PULSE 79; RESP 20; TEMP 99
[2023-07-15] MEDS ORDERED: LOSA1TAB37 MT (20:48)
[2023-07-15] MEDS ORDERED: CARV3.1242 MT (20:48)
== END 2023-07-15 20:57 | disposition home or self-care (01) ==
LOC: ER 18:27
DX: G89.18 Other acute postprocedural pain (principal); M25.512 Pain in left shoulder; E78.00 Pure hypercholesterolemia, unspecified; I10 Essential (primary) hypertension; Z98.890 Other specified postprocedural states; Z79.899 Other long term (current) drug therapy
CPT/HCPCS: 96372; 99283; J1885; Z7610

== ENCOUNTER 2023-08-26 16:52 | Emergency (ER) | payer MEDICAID ==
[~2023-08-26] VITALS: Ht 167.6 cm; Wt 100.0 kg
[~2023-08-26 16:52] MED LIST changes: +CARV3.1242 MT; +LIDO700A15 TP; +LOSA1TAB37 MT
[2023-08-26 17:02] VITALS: O2SAT 98
[2023-08-26 17:42] LABS: HEMOGLOBIN 14.3 g/dL (14.0-18.0); MEAN CORPUSCULAR HEMOGLOBIN 29.2 pg (28.0-32.0); MEAN CORPUSCULAR VOLUME 85.9 fL (80.0-94.0); PLATELET 351 x1000/uL (130-400); RED BLOOD CELL COUNT 4.89 mill/uL (4.7-6.1); RED CELL DISTRIBUTION WIDTH 14.3 % (11.6-14.6); WHITE BLOOD COUNT 9.9 x1000/uL (4.5-11.0)
[2023-08-26 17:57] LABS: ALANINE AMINOTRANSFERASE 75 IU/L (10-49); ALBUMIN 4.8 g/dL (3.2-4.8); ASPARTATE AMINOTRANSFERASE 35 IU/L (<34); BILIRUBIN TOTAL 1.5 mg/dL (0.1-1.0); CALCIUM 9.4 mg/dL (8.7-10.4); CARBON DIOXIDE 24 mEq/L (21-32); CHLORIDE 106 mEq/L (98-107); CREATININE 1.2 mg/dL (0.6-1.3); GLUCOSE 98 mg/dL (70-105); PROTEIN TOTAL 7.7 g/dL (6.0-8.3); SODIUM 139 mEq/L (136-145); UREA NITROGEN BLOOD 16 mg/dL (9-23)
[2023-08-26 17:59] LABS: TROPONIN I HIGH SENSITIVITY < 4 ng/L (3.0-53)
[2023-08-26 21:52] LABS: CLARITY URINE CLEAR (CLEAR); COLOR URINE YELLOW (YELLOW); GLUCOSE URINE NEGATIVE (NEGATIVE); KETONES URINE NEGATIVE (NEGATIVE); LEUKOCYTE ESTERASE URINE NEGATIVE (NEGATIVE); NITRITE URINE NEGATIVE (NEGATIVE); OCCULT BLOOD URINE NEGATIVE (NEGATIVE); PH URINE 6.5 (4.5-8.0); PROTEIN URINE NEGATIVE (NEGATIVE); SPECIFIC GRAVITY URINE 1.025 (1.005-1.030)
[2023-08-27] MEDS: KETOROLAC 15MG/ML VIAL IV NR (00:54)
[2023-08-27] MEDS: SODIUM CHLORIDE 0.9% 1,000 ML IV ONE (00:54)
[2023-08-27 04:15] VITALS: BP 129/86; PULSE 60; RESP 14; TEMP 97.8
[2023-08-27] MEDS ORDERED: NAPR275T96 MT (04:28)
[2023-08-27] MEDS ORDERED: IOHEXOL-350 100 ML BOTTLE ONE (06:33)
== END 2023-08-27 04:45 | disposition home or self-care (01) ==
LOC: ER 16:52
DX: R60.9 Edema, unspecified (principal); M25.561 Pain in right knee; R07.89 Other chest pain; E11.9 Type 2 diabetes mellitus without complications; E78.00 Pure hypercholesterolemia, unspecified; I10 Essential (primary) hypertension; Z79.899 Other long term (current) drug therapy
CPT/HCPCS: 99285; 93970; 71045; 80053; 81003; 82962; 83880; 85027; 85379; 84484; 36415; 93005; 96374; 71275; 96361; Q9967; J1885

== ENCOUNTER 2023-11-18 13:07 | Emergency (ER) | payer MEDICAID ==
[~2023-11-18] VITALS: Ht 172.7 cm; Wt 90.0 kg
[~2023-11-18 13:07] MED LIST changes: +NAPR275T96 MT
[2023-11-18 13:19] VITALS: TEMP 98.2; O2SAT 98
[2023-11-18] MEDS: KETOROLAC 15MG/ML VIAL IM ONE (14:37)
[2023-11-18] MEDS ORDERED: DOCU-150 MT (14:53)
[2023-11-18 15:12] VITALS: BP 141/98; PULSE 64; RESP 20
[2023-11-18] MEDS ORDERED: NAPR-1176 MT (15:21)
== END 2023-11-18 15:22 | disposition home or self-care (01) ==
LOC: ER 13:07
DX: G89.29 Other chronic pain (principal); I10 Essential (primary) hypertension; E78.00 Pure hypercholesterolemia, unspecified; E11.9 Type 2 diabetes mellitus without complications; Z79.899 Other long term (current) drug therapy; Z79.82 Long term (current) use of aspirin; Z98.890 Other specified postprocedural states
CPT/HCPCS: 99283; 96372; J1885